=== PATIENT | female | born 2000 | race Caucasian/White ===

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

== ENCOUNTER 2018-10-20 21:51 | Emergency (ER) | payer OTHER ==
[~2018-10-20] VITALS: Ht 7.6 cm; Wt 73.0 kg
[~2018-10-20 21:51] MED LIST: PHENERGAN 25 TA25 MG PO; PRIL40 PO
[2018-10-20 22:09] VITALS: BP 117/64; TEMP 98.7
[2018-10-20 22:42] LABS: COLLECTION METHOD CLEAN CATCH
[2018-10-20 22:51] LABS: BASO # 0.1 (0.0-0.2); BASO % 0.7 % (0.0-2.0); EOS # 0.3 (0.0-0.7); EOS % 2.7 % (0-4.0); GRAN # 7.8 (1.4-6.5); GRAN % 72.6 % (42.2-75.2); HEMATOCRIT 38.9 % (35.0-45.0); HEMOGLOBIN 13.2 g/dl (12.0-15.0); LYMPH # 1.8 (1.2-3.4); LYMPH % 16.4 % (20.0-51.0); MEAN CELL VOLUME 83 fl (80.0-95.0); MEAN CORPUSCULAR HEMOGLOBIN 28 pg (26.0-32.0); MEAN CORPUSCULAR HGB CONC 34 g/dl (33.0-37.0); MONO # 0.8 (0.1-0.6); MONO % 7.3 % (1.7-9.3); PLATELET COUNT 269 K/mm3 (130-400); RED BLOOD COUNT 4.71 M/mm3 (4.10-5.30)
[2018-10-20 22:52] LABS: MUCOUS Present /lpf; PH 8 (5-8); SQUAMOUS EPITHELIAL 0-2 /hpf; URINE APPEARANCE Cloudy; URINE BACTERIA None Seen /hpf; URINE BILIRUBIN Negative (NEGATIVE); URINE BLOOD Negative (NEGATIVE); URINE COLOR Amber; URINE GLUCOSE Negative (NEGATIVE); URINE KETONE Negative (NEGATIVE); URINE LEUKOCYTE ESTERASE Negative (NEGATIVE); URINE NITRATE Negative (NEGATIVE); URINE PROTEIN(semi-quant) 2+ (NEGATIVE); URINE RBC 0-2 /hpf
[2018-10-20 23:14] LABS: ALBUMIN 4.9 gm/dL (3.5-5.0); BILIRUBIN,TOTAL 1.3 mg/dL (0.0-1.0); C-REACTIVE PROTEIN 0.8 mg/dL (0.0-0.9); CREATININE, serum 0.65 (0.52-1.25); POTASSIUM 3.4 mmol/L (3.4-5.0); TOTAL PROTEIN 8.5 gm/dL (6.4-8.2)
[2018-10-21] MEDS ORDERED: ZOFRAN ODT4 MG PO (02:04)
[2018-10-21] MEDS ORDERED: NORCO 325 MG-51 TAB PO (02:04)
[2018-10-21 02:25] VITALS: PULSE 80
== END 2018-10-21 02:25 | disposition home or self-care (01) ==
LOC: COL.ER 21:51
PROVIDERS: Physician Assistant
DX: R91.1 Solitary pulmonary nodule (principal); R74.0 Nonspecific elevation of levels of transaminase and lactic acid dehydrogenase [LDH]; R10.13 Epigastric pain
CPT/HCPCS: J1885; J2270; J2405; J7030; Q9967

== ENCOUNTER 2018-10-22 15:42 | Observation (INO) | payer OTHER ==
[~2018-10-22] VITALS: Ht 160 cm; Wt 72.4 kg
[2018-10-22 18:25] LABS: BASO # 0.1 (0.0-0.2); BASO % 0.6 % (0.0-2.0); EOS # 0.2 (0.0-0.7); EOS % 2.2 % (0-4.0); GRAN # 9.3 (1.4-6.5); GRAN % 84.8 % (42.2-75.2); HEMATOCRIT 39.9 % (35.0-45.0); HEMOGLOBIN 13.2 g/dl (12.0-15.0); LYMPH # 0.9 (1.2-3.4); LYMPH % 7.8 % (20.0-51.0); MEAN CELL VOLUME 85 fl (80.0-95.0); MEAN CORPUSCULAR HEMOGLOBIN 28 pg (26.0-32.0); MEAN CORPUSCULAR HGB CONC 33 g/dl (33.0-37.0); MEAN PLATELET VOLUME 12.8 fl (7.4-10.4); MONO # 0.5 (0.1-0.6); MONO % 4.3 % (1.7-9.3); PLATELET COUNT 278 K/mm3 (130-400); RED BLOOD COUNT 4.71 M/mm3 (4.10-5.30); REDCELL DISTRIBUTION WIDTH-CV 12.5 % (11.5-14.5)
[2018-10-22 18:34] LABS: ALBUMIN 4.7 gm/dL (3.5-5.0); BILIRUBIN,TOTAL 2.5 mg/dL (0.0-1.0); C-REACTIVE PROTEIN 1.2 mg/dL (0.0-0.9); CALCIUM 9.8 mg/dL (8.4-10.2); CREATININE, serum 0.65 (0.52-1.25); POTASSIUM 3.7 mmol/L (3.4-5.0); TOTAL PROTEIN 8.5 gm/dL (6.4-8.2)
[2018-10-22 20:50] VITALS: BP 93/53; PULSE 50; TEMP 97.7
[2018-10-23] VITALS (15 sets, daily range): BP systolic 87–115; BP diastolic 47–79; PULSE 53–104; TEMP 97.4–98.3
--- NOTE | 2018-10-23 05:24 | NUR ---
Pt resting this AM. No distress noted. Pt has slept periodically throughout the night with minimal complaints. Pain and nausea medication given x1. Pain well controlled. Pts blood pressures have been soft since admission from ER with flucation into normal range. Pt has been asymptomatic, except for some complaints of dizziness after administration of pain medication. Pt instructed to call for assistance when getting out of bed. IVF infusing. Pt has been NPO since admission. Pt denies needs this AM.
[2018-10-23 06:14] LABS: BASO # 0.1 (0.0-0.2); BASO % 0.8 % (0.0-2.0); EOS # 0.4 (0.0-0.7); EOS % 5.3 % (0-4.0); GRAN # 4.1 (1.4-6.5); GRAN % 56.2 % (42.2-75.2); HEMOGLOBIN 12.1 g/dl (12.0-15.0); LYMPH % 27.6 % (20.0-51.0); MEAN CELL VOLUME 85 fl (80.0-95.0); MEAN CORPUSCULAR HEMOGLOBIN 29 pg (26.0-32.0); MEAN CORPUSCULAR HGB CONC 34 g/dl (33.0-37.0); MEAN PLATELET VOLUME 12.9 fl (7.4-10.4); MONO # 0.7 (0.1-0.6); MONO % 9.8 % (1.7-9.3); PLATELET COUNT 190 K/mm3 (130-400); RED BLOOD COUNT 4.25 M/mm3 (4.10-5.30); REDCELL DISTRIBUTION WIDTH-CV 12.6 % (11.5-14.5)
[2018-10-23 06:19] LABS: ALBUMIN 3.8 gm/dL (3.5-5.0); CALCIUM 8.9 mg/dL (8.4-10.2); CREATININE, serum 0.64 (0.52-1.25); POTASSIUM 3.8 mmol/L (3.4-5.0); TOTAL PROTEIN 6.8 gm/dL (6.4-8.2)
[2018-10-23 06:40] LABS: HEMATOCRIT 36.1 % (35.0-45.0)
--- NOTE | 2018-10-23 11:46 | NUR ---
Visited, provided spiritual care, and prayed with the patient.
--- NOTE | 2018-10-23 18:31 | NUR ---
Patient has done well throughout the day, pain well controlled until surgery. Continues to do well after surgery, lap sites x4 with castro set edges well approximated. Post op VSS. Denies pain at this time. Tolerating fluids without nausea. Ordering supper at this time. Denies further needs at this time. 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
--- NOTE | 2018-10-23 19:10 | NUR ---
Pt resting in bed. No distress noted. Family at bedside. Pt just finished eating a large regular diet meal. Pt is complaining of pain 7/10 in epigastric region. Abdomen is soft, rounded. BS are hypoactive. Post operative VSS. Lap sites x4 closed with siftset- edges well approximated. Respiration even and unlabored. lungs clear. Pt denies nausea. Will continue to monitor.
--- NOTE | 2018-10-23 19:30 | NUR ---
PRN Wilsey was given for pain control. will continue to monitor.
--- NOTE | 2018-10-23 20:10 | NUR ---
Pts reports pain is now 7/10 1 hour post Gazelle administration.
--- NOTE | 2018-10-23 20:18 | NUR ---
Dr. Perrin called about patients concern about discharging d/t her pain being elevated. Dr. Perrin said to keep her overnight for pain control.
--- NOTE | 2018-10-23 20:31 | NUR ---
PRN IV pain medication given for pain not relieved by PO pain medication.
--- NOTE | 2018-10-23 21:15 | NUR ---
Pt reports pain is now 3/10 after administering IV pain medication. Post op vital signs complete. Stable. Pt has voided. Will continue to monitor.
--- NOTE | 2018-10-24 00:45 | NUR ---
Pt reports that her pain is "increasing" Now rating it at a 4/10 and rising. PRN pain medication given PO.
[2018-10-24 03:56] VITALS: BP 113/56; PULSE 50; TEMP 97.9
--- NOTE | 2018-10-24 05:40 | NUR ---
Pt resting this AM. No distress noted. Pt has walked the halls x1 last night. She has c/o consistent pain. Controlled with PRN pain medication. Pt has had no nausea.
[2018-10-24 08:00] VITALS: BP 97/57; PULSE 67; TEMP 98.8
--- NOTE | 2018-10-24 08:30 | NUR ---
Patient has been up walking around the room. Denies pain this morning. Tolerating regular diet. No complaints of nausea. Discussed discharge plan, she is wanting to leave after lunch. No other changes at this time. Call light within reach.
--- NOTE | 2018-10-24 11:30 | NUR ---
Patient is discharging home. Discharge instructions discussed with patient. She had some questions about returning to school and diet. Answered the questions. Copies of discharge instructions sent with patient. All belongings packed up by patient. She stated she is calling an [employer] for a ride. Explained that she needs to call Thursday and make her follow up appiontment. We also faxed the info over to Dr Perrin's office. Patient verbalized understanding of the instructions.
== END 2018-10-24 12:10 | disposition home or self-care (01) ==
LOC: COL.ER 15:42 → SURG 20:26
PROVIDERS: Emergency Medicine; ADMIT Surgery
DX: K80.10 Calculus of gallbladder with chronic cholecystitis without obstruction (principal); Z79.899 Other long term (current) drug therapy
CPT/HCPCS: G0378; J0690; J0696; J0780; J1100; J1170; J1885; J2270; J2405; J2704; J2710; J3010; J7030; J7120; Q9967

== ENCOUNTER → 2018-10-22 | Outpatient (CLI) | payer OTHER ==
[~2018-10-22] MED LIST changes: +NORCO 325 MG-51 TAB PO; +ZOFRAN ODT4 MG PO
== END ==
LOC: COL.RAD 11:40
DX: K80.20 Calculus of gallbladder without cholecystitis without obstruction (principal)

== ENCOUNTER 2019-04-20 03:29 | Emergency (ER) | payer OTHER ==
[~2019-04-20] VITALS: Ht 58 cm; Wt 73.0 kg
[2019-04-20 03:41] VITALS: BP 120/62; PULSE 79; TEMP 98.7
== END 2019-04-20 06:00 | disposition left against medical advice (07) ==
LOC: COL.ER 03:29
DX: R10.9 Unspecified abdominal pain (principal)

== ENCOUNTER 2019-04-21 16:33 | Inpatient (IN) | payer OTHER ==
[~2019-04-21] VITALS: Ht 158 cm; Wt 74.6 kg
[2019-04-21 17:26] VITALS: BP 118/62; PULSE 83; TEMP 98.6
[2019-04-21 20:20] VITALS: BP 92/51; PULSE 63; TEMP 97.8
[2019-04-21 23:45] VITALS: BP 96/49; PULSE 73; TEMP 99.1
[2019-04-22 03:01] VITALS: BP 90/57; PULSE 78; TEMP 97.6
[2019-04-22 07:26] VITALS: BP 103/63; PULSE 60; TEMP 98
[2019-04-22 12:44] VITALS: BP 98/59; PULSE 74; TEMP 97.8
[2019-04-22 15:45] VITALS: BP 100/53; PULSE 78; TEMP 98.2
[2019-04-22 20:00] VITALS: BP 98/60; PULSE 76; TEMP 97.5
[2019-04-22 23:40] VITALS: BP 90/46; PULSE 76; TEMP 98.1
[2019-04-23 04:31] VITALS: BP 89/45; PULSE 63; TEMP 98.3
[2019-04-23 08:43] VITALS: BP 106/61; PULSE 59; TEMP 98.2
[2019-04-23] MEDS ORDERED: LEVAQUIN 5500 MG/TA1 PO (08:45)
[2019-04-23] MEDS ORDERED: FLAGYL500 MG PO (08:49)
== END 2019-04-23 11:40 | disposition home or self-care (01) | DRG 395 ==
LOC: SURG 16:33
PROVIDERS: ADMIT Surgery
DX: K35.80 Unspecified acute appendicitis (principal); Z90.49 Acquired absence of other specified parts of digestive tract
CPT/HCPCS: J0330; J1100; J1885; J1956; J2405; J2704; J2710; J3010; J7030

== ENCOUNTER 2021-09-08 16:12 | Observation (INO) | payer OTHER ==
[~2021-09-08] VITALS: Ht 160 cm; Wt 78.0 kg
[~2021-09-08 16:12] MED LIST changes: +FLAGYL500 MG PO; +LEVAQUIN 5500 MG/TA1 PO
[2021-09-08 16:44] LABS: COLLECTION METHOD CLEAN CATCH
[2021-09-08 16:55] LABS: MUCOUS Present (NOT PRESENT); PH 5 (5-8); URINE APPEARANCE Hazy (CLEAR/HAZY); URINE BACTERIA None Seen /hpf (NONE SEEN); URINE BLOOD 1+ (NEGATIVE); URINE COLOR Yellow (YELLOW); URINE GLUCOSE Negative (NEGATIVE); URINE KETONE Trace (NEGATIVE); URINE NITRATE Negative (NEGATIVE); URINE PROTEIN(semi-quant) Negative (NEGATIVE); URINE RBC 0-2 /hpf (0-2); URINE UROBILINOGEN Negative (NEGATIVE)
[2021-09-08 17:08] LABS: BASO # 0.1 K/mm3 (0.0-0.2); BASO % 0.3 % (0.0-2.0); EOS # 0.1 K/mm3 (0.0-0.7); EOS % 0.9 % (0.0-4.0); GRAN # 12.2 K/mm3 (1.4-6.5); GRAN % 82.2 % (42.2-75.2); HEMATOCRIT 37.5 % (37.0-47.0); HEMOGLOBIN 13.1 g/dl (12.5-16.0); LYMPH # 1.6 K/mm3 (1.2-3.4); LYMPH % 10.5 % (20.0-51.0); MEAN CELL VOLUME 77 fl (80.0-100.0); MEAN CORPUSCULAR HEMOGLOBIN 27 pg (27-31); MEAN CORPUSCULAR HGB CONC 35 g/dl (33.0-37.0); MEAN PLATELET VOLUME 11.6 fl (7.4-10.4); MONO # 0.9 K/mm3 (0.1-0.6); MONO % 5.8 % (1.7-9.3); PLATELET COUNT 287 K/mm3 (130-400); RED BLOOD COUNT 4.88 M/mm3 (4.10-5.30); REDCELL DISTRIBUTION WIDTH-CV 12.8 % (11.5-14.5)
[2021-09-08 17:27] LABS: BILIRUBIN,TOTAL 0.6 mg/dL (0.2-1.2); C-REACTIVE PROTEIN 1.15 mg/dL (0.00-0.50); CALCIUM 9.4 mg/dL (8.4-10.2); CREATININE, serum 0.76 mg/dL (0.57-1.11); POTASSIUM 3.7 mmol/L (3.5-4.5); TOTAL PROTEIN 7.8 gm/dL (6.2-8.1)
[2021-09-08 21:00] VITALS: BP 118/74; PULSE 71; TEMP 97.6
--- NOTE | 2021-09-08 23:36 | NUR ---
PATIENT UP TO ROOM 322. ALERT AND ORIENTED. C/O MILD 3/10 PAIN TO RLQ. DENIES NEEDS FOR PAIN MEDS AT THIS TIME. MED RX AND ADMIN ASSESSMENTS COMPLETED. IVF STARTED TO R AC IV. PATIENT DENIES ADDITIONAL NEEDS. IN AGREEANCE TO BEING NPO AT MIDNIGHT FOR POSSIBILITY OF SURGERY TOMORROW. DID TOLERATE SOME JELLO EARLIER WITHOUT ISSUE.
[2021-09-09 00:10] VITALS: BP 90/41; PULSE 87; TEMP 97.4
[2021-09-09 01:23] VITALS: BP 98/51
--- NOTE | 2021-09-09 01:43 | NUR ---
PATIENT C/O MODERATE PAIN AND REQUESTS ADDITIONAL MORPHINE. PATIENTS BP 90/40s, DISCUSSED WITH PATIENT AND WILL RECHECK BP IN 1 HOUR. RECHECKED BP WAS 98/51. PATIENT IN AGREEANCE TO RECHECK AGAIN IN 1 HOUR TO MONITOR BP BEFORE GIVING ADDITIONAL PAIN MEDICATION DOSE.
[2021-09-09 03:23] VITALS: BP 110/59; PULSE 73; TEMP 98.4
[2021-09-09 08:00] VITALS: BP 99/59; PULSE 71; TEMP 98.2
--- NOTE | 2021-09-09 08:16 | NUR ---
PT INDEPENDENT IN ROOM. PT DENIES NEEDS AT THIS TIME. PT WOULD LIKE TO TREAT SX WITH IV ABX. PT IS A/O X4.
[2021-09-09 10:10] LABS: HEMOGLOBIN 12.1 g/dl (12.5-16.0); MEAN CELL VOLUME 79 fl (80.0-100.0); MEAN CORPUSCULAR HEMOGLOBIN 27 pg (27-31); MEAN CORPUSCULAR HGB CONC 34 g/dl (33.0-37.0); MEAN PLATELET VOLUME 11.6 fl (7.4-10.4); PLATELET COUNT 256 K/mm3 (130-400); RED BLOOD COUNT 4.53 M/mm3 (4.10-5.30); REDCELL DISTRIBUTION WIDTH-CV 12.9 % (11.5-14.5)
[2021-09-09 10:15] LABS: HEMATOCRIT 35.8 % (37.0-47.0)
--- NOTE | 2021-09-09 10:39 | NUR ---
Initial visit; Patient thanked [employer] for visiting her and wishing her well. Patient very sweet and smiled when [employer] commented on her beautiful dimples when she smiled. [employer] let her know of [employer] availability.
--- NOTE | 2021-09-09 11:21 | NUR ---
residential program worker met with patient to complete intake and discuss discharge plan. Patient asks when the doctor will round because " i haven't seen him since 3'oclock yesterday afternoon". Informed the patient that depending home how many procedures he has today will depend on when he rounds. Patient then asks if she can eat. RN notified. Patient reports that she lives at home with her two brothers Shona ([phone]) and Ara ([phone]) in an apartment here in [place]. She is independent with her cares. She see's [facility] for PCP care and gets any medications from them as well. Patient is planning on returning home once medically ready. Discharge plan: Home
[2021-09-09 11:53] VITALS: BP 105/56; PULSE 88; TEMP 98.3
[2021-09-09] MEDS ORDERED: AMOXICILLIN 8751 TAB PO (12:56)
--- NOTE | 2021-09-09 16:17 | NUR ---
DISCHCARGE INSTRUCTIONS REVIEWED WITH PATIENT QUESTIONS ANSWERED. PT LEFT UNIT AMBULATORY WITH STAFF.
== END 2021-09-09 16:24 | disposition home or self-care (01) ==
LOC: COL.ER 16:12 → SURG 19:01
PROVIDERS: Family Medicine; ADMIT Surgery
DX: K35.80 Unspecified acute appendicitis (principal)
CPT/HCPCS: G0378; J2270; J2543; J7120; Q9967

== ENCOUNTER 2022-05-13 05:53 | Emergency (ER) | payer OTHER ==
[~2022-05-13] VITALS: Ht 157.5 cm; Wt 83.2 kg
[~2022-05-13 05:53] MED LIST changes: +AMOXICILLIN 8751 TAB PO
[2022-05-13 06:12] VITALS: TEMP 98.1
[2022-05-13 07:13] LABS: COLLECTION METHOD CLEAN CATCH
[2022-05-13 07:19] LABS: BASO # 0.1 K/mm3 (0.0-0.2); BASO % 0.8 % (0.0-2.0); EOS # 0.5 K/mm3 (0.0-0.7); EOS % 4.4 % (0.0-4.0); GRAN # 7.2 K/mm3 (1.4-6.5); HEMATOCRIT 39.9 % (37.0-47.0); LYMPH # 3.1 K/mm3 (1.2-3.4); LYMPH % 25.6 % (20.0-51.0); MEAN CELL VOLUME 84 fl (80.0-100.0); MEAN CORPUSCULAR HEMOGLOBIN 29 pg (27-31); MEAN CORPUSCULAR HGB CONC 35 g/dl (33.0-37.0); MEAN PLATELET VOLUME 11.8 fl (7.4-10.4); MONO # 1.1 K/mm3 (0.1-0.6); MONO % 8.9 % (1.7-9.3); PLATELET COUNT 280 K/mm3 (130-400); RED BLOOD COUNT 4.78 M/mm3 (4.10-5.30); REDCELL DISTRIBUTION WIDTH-CV 12.1 % (11.5-14.5)
[2022-05-13 07:24] LABS: MUCOUS Present (NOT PRESENT); URINE APPEARANCE Clear (CLEAR/HAZY); URINE BACTERIA None Seen /hpf (NONE SEEN); URINE COLOR Yellow (YELLOW); URINE RBC 0-2 /hpf (0-2)
[2022-05-13 07:25] LABS: URINE BLOOD Negative (NEGATIVE); URINE GLUCOSE Negative (NEGATIVE); URINE KETONE Negative (NEGATIVE); URINE NITRATE Negative (NEGATIVE); URINE PROTEIN(semi-quant) Negative (NEGATIVE); URINE UROBILINOGEN 0.2 E.U/dL (0.2-1.0)
[2022-05-13 07:37] LABS: ALBUMIN 3.9 gm/dL (3.5-5.0); BILIRUBIN,TOTAL 0.2 mg/dL (0.2-1.2); C-REACTIVE PROTEIN 1.52 mg/dL (0.00-0.50); CALCIUM 9.5 mg/dL (8.4-10.2); CREATININE, serum 0.76 mg/dL (0.57-1.11); POTASSIUM 3.7 mmol/L (3.5-4.5); TOTAL PROTEIN 7.8 gm/dL (6.2-8.1)
[2022-05-13 09:06] VITALS: BP 111/61; PULSE 62
[2022-05-13] MEDS ORDERED: NORCO 325 MG-51 TAB PO (09:17)
== END 2022-05-13 09:10 | disposition home or self-care (01) ==
LOC: COL.ER 05:53
PROVIDERS: Emergency Medicine
DX: R10.31 Right lower quadrant pain (principal); R10.32 Left lower quadrant pain; R11.0 Nausea; D72.829 Elevated white blood cell count, unspecified; R79.82 Elevated C-reactive protein (CRP); Z90.49 Acquired absence of other specified parts of digestive tract
CPT/HCPCS: J1885; J2405; J7030; Q9967